=== PATIENT | male | born 1985 | race Hispanic/Latino ===

== ENCOUNTER 2021-01-01 01:32 | Emergency (ER) | payer OTHER ==
[2021-01-01] MEDS ORDERED: HALOPERIDOL LACTATE 5 MG/1 ML INJ IM PRN (01:49)
[2021-01-01] MEDS ORDERED: LORazepam 2 MG/ML VIAL IM PRN (01:49)
--- NOTE | 2021-01-01 01:57 | Emergency Department Report ---
ED General Adult HPI - General Chief complaint: Psych Stated complaint: Psych PUI?: No Time Seen by Provider: 01/01/21 01:47 Source: patient, police, RN notes reviewed Limitations: Other (Acute psychosis) - History of Present Illness Initial comments: The patient was evaluated in the emergency department for symptoms described in the history of present illness. He/she was evaluated in the context of the global COVID-19 pandemic, which necessitated consideration that the patient might be at risk for infection with the virus that causes COVID-19. In stitutional protocols and algorithms that pertain to the evaluation of patients at risk for COVID-19 are in a state of rapid change based on information released by regulatory bodies including the CDC and federal and state organizations. These policies and algorithms were followed during the patient's care in the emergency department. Please note that these policies, procedures and recommendations changed on a rapid basis. This patient is a an obese male, appears to be in his mid 30s, who was brought to the hospital by police department, with police guard stating that they are bringing him here for "1013." Patient is acutely psychotic/disorganized and not forthcoming, therefore, history obtained from police department. Apparently, law enforcement contacted because this patient was reportedly "prowling" around local houses. Apparently, one of the local homeowners called police department. Police Department do not have ID on this patient, and the patient is not forthco traci with his name. At 1 point in time, as Police Department, the patient stated that he was Itzel Lopez, later on, give his name is Clifton, and perhaps Linus. He did not endorse physical pain. Patient responds with a series of uninterrupted ones and zeros. The patient then stated "I am not giving you my age." The patient is obvious psychotic and disorganized, and therefore, duration of symptoms, quality of symptoms, exacerbating relieving factors are not available. ED Review of Systems ROS: Stated complaint: MH Other details as noted in HPI Comment: Unobtainable due to pts medical conditions ED Physical Exam - General Limitations: Other (Acute psychosis and disorganization) General appearance: anxious, obese - Head Head exam: Present: atraumatic, normocephalic - Eye Eye exam: Present: normal appearance, PERRL, EOMI, other (Pupils are dilated). Absent: nystagmus - ENT ENT exam: Present: normal exam, normal orophraynx, mucous membranes moist, normal external ear exam - Neck Neck exam: Present: normal inspection, full ROM. Absent: tenderness, meningismus - Respiratory Respiratory exam: Present: normal lung sounds bilaterally. Absent: respiratory distress, wheezes, rales, rhonchi, stridor - Cardiovascular Cardiovascular Exam: Present: regular rate, normal rhythm, normal heart sounds. Absent: bradycardia, tachycardia, irregular rhythm, systolic murmur, diastolic murmur, rubs, gallop - GI/Abdominal GI/Abdominal exam: Present: soft. Absent: distended, tenderness, guarding, rebound, rigid, pulsatile mass - Rectal Rectal exam: Present: deferred - Extremities Exam Extremities exam: Present: normal inspection, full ROM, other (2+ pulses noted in the bilateral upper and lower extremities. There is no palpable cord. negative Homans sign. Muscular compartments are soft. The pelvis is stable.). Absent: pedal edema, calf tenderness - Back Exam Back exam: Present: normal inspection. Absent: tenderness, CVA tenderness (R), CVA tenderness (L), paraspinal tenderness, vertebral tenderness - Neurological Exam Neurological exam: Present: altered (Psychosis), normal gait, other (No facial droop. Tongue is midline. EOMI. 5 out of 5 strength in 4 extremities) - Psychiatric Psychiatric exam: Present: anxious - Skin Skin exam: Present: warm, dry, intact, normal color. Absent: rash ED Course Vital Signs 01/01/21 01/01/21 02:06 02:23 Temperature 98.5 F 98.5 F Pulse Rate 72 72 Respiratory 14 14 Rate Blood Pressure 122/57 122/57 [Right] O2 Sat by Pulse 97 97 Oximetry - Reevaluation(s) Reevaluation #1: 01/01/21 01:55 Differential diagnosis, including but not limited to: Psychosis, medical clearance for psychiatric evaluation, medical screening examination Assessment and plan: Obese male who is clinically psychotic, requires medical clearance for psychiatric evaluation. 1013 form filled out by myself. Have requested appropriate laboratory studies, vital signs, noncontrast CT scan of the brain, Covid swab for placement, urinalysis, urine toxicology study. Nursing team to take patient to decontamination room to clean him off, as he appears to have leaves, and other pieces of dirt on him. 01/01/21 02:41 Given dilated pupils, disorganized behavior, leukocytosis, I suspect drug- induced psychosis, likely sympathomimetic. There is no neck stiffness, no meningeal signs, no fever, nonfocal motor exam, and the patient walks with a steady gait. Do not suspect invasive bacterial or viral infection at this time. 01/01/21 02:[address] scan of the brain is negative for acute disease. BC reviewed and appreciated, leukocytosis is likely a stress reaction, likely secondary to sympathomimetic ingestion. Basic metabolic panel unremarkable with exception of mild dehydration. Liver panel unremarkable with the exception of mildly elevated CK, which will decrease on its own with rest and oral hydration, and minimal elevation in liver tests, which can be followed up expectantly as an outpatient. Urinalysis is pending at this time. Serum toxicology study unremarkable. Urine drug screen and Covid swab pending at this time. 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 At this point time, this patient does not appear to have an immediate medical contraindication to psychiatric admission, evaluation, consultation and placement. ED Medical Decision Making - Lab Data Result diagrams: 01/01/21 02:11 01/01/21 02:11 Vital Signs 01/01/21 02:23 Temperature 98.5 F Pulse Rate 72 Respiratory 14 Rate Blood Pressure 122/57 [Right] O2 Sat by Pulse 97 Oximetry Lab Results 01/01/21 Range/Units 02:11 WBC 18.2 H (4.5-11.0) K/mm3 RBC 5.25 H (3.65-5.03) M/mm3 Hgb 15.1 (11.8-15.2) gm/dl Hct 45.0 (35.5-45.6) % MCV 86 (84-94) fl MCH 29 (28-32) pg MCHC 34 (32-34) % RDW 14.1 (13.2-15.2) % Plt Count 300 (140-440) K/mm3 Lab Results 01/01/21 01/01/21 01/01/21 Range/Units 02:11 02:11 02:11 WBC 18.2 H (4.5-11.0) K/mm3 RBC 5.25 H (3.65-5.03) M/mm3 Hgb 15.1 (11.8-15.2) gm/dl Hct 45.0 (35.5-45.6) % MCV 86 (84-94) fl MCH 29 (28-32) pg MCHC 34 (32-34) % RDW 14.1 (13.2-15.2) % Plt Count 300 (140-440) K/mm3 Sodium 142 (137-145) mmol/L Potassium 3.9 (3.6-5.0) mmol/L Chloride 102.9 (98-107) mmol/L Carbon Dioxide 21 L (22-30) mmol/L Anion Gap 22 mmol/L BUN 10 (9-20) mg/dL Creatinine 1.2 (0.8-1.3) mg/dL Estimated GFR > 60 ml/min BUN/Creatinine Ratio 8 % Glucose 123 H (75-100) mg/dL Calcium 9.3 (8.4-10.2) mg/dL Magnesium (1.7-2.3) mg/dL Total Bilirubin 0.90 (0.1-1.2) mg/dL AST 46 H (5-40) units/L ALT 65 H (7-56) units/L Alkaline Phosphatase 81 (35-129) units/L Total Creatine Kinase (55-170) units/L Total Protein 7.4 (6.3-8.2) g/dL Albumin 4.6 (3.9-5) g/dL Albumin/Globulin Ratio 1.6 % Salicylates < 0.3 L (2.8-20.0) mg/dL Acetaminophen (10.0-30.0) ug/mL Plasma/Serum Alcohol (0-0.07) % 01/01/21 01/01/21 01/01/21 Range/Units 02:11 02:11 02:11 WBC (4.5-11.0) K/mm3 RBC (3.65-5.03) M/mm3 Hgb (11.8-15.2) gm/dl Hct (35.5-45.6) % MCV (84-94) fl MCH (28-32) pg MCHC (32-34) % RDW (13.2-15.2) % Plt Count (140-440) K/mm3 Sodium (137-145) mmol/L Potassium (3.6-5.0) mmol/L Chloride (98-107) mmol/L Carbon Dioxide (22-30) mmol/L Anion Gap mmol/L BUN (9-20) mg/dL Creatinine (0.8-1.3) mg/dL Estimated GFR ml/min BUN/Creatinine Ratio % Glucose (75-100) mg/dL Calcium (8.4-10.2) mg/dL Magnesium 2.00 (1.7-2.3) mg/dL Total Bilirubin (0.1-1.2) mg/dL AST (5-40) units/L ALT (7-56) units/L Alkaline Phosphatase (35-129) units/L Total Creatine Kinase 856 H (55-170) units/L Total Protein (6.3-8.2) g/dL Albumin (3.9-5) g/dL Albumin/Globulin Ratio % Salicylates (2.8-20.0) mg/dL Acetaminophen 5.0 L (10.0-30.0) ug/mL Plasma/Serum Alcohol < 0.01 (0-0.07) % - Radiology Data Radiology results: report reviewed, image reviewed [place] [id number] Cat Scan Report Signed Patient: EMERGENCY,MEDICAL MR#: [id number] : 05/18/1983 Acct:[id number] Age/Sex: 37 / M ADM Date: 01/01/21 Loc: ED Attending Dr: Ordering Physician: NATALIE BYRD MD Date of Service: 01/01/21 Procedure(s): CT head/brain wo con Accession Number(s): [id number] cc: NATALIE BYRD MD NONENHANCED CT SCAN OF THE HEAD: INDICATION / CLINICAL INFORMATION: 37 years Male; Psychosis. TECHNIQUE: Routine CT head without contrast. All CT scans at this location are performed using CT dose reduction for ALARA by means of automated exposure control. COMPARISON: Not available; CT images from 11/09/2020 linked to this patient belongs to a different patient FINDINGS: BRAIN / INTRACRANIAL CONTENTS: Motion related artifacts obscuring the details in some of these images. No acute hemorrhage, mass effect, midline shift, hydrocephalus, or acute, large territorial infarct. No chronic infarct or focal atrophy. Normal brain volume and ventricular/sulcal size for age. No significant white matter abnormality. CRANIOCERVICAL JUNCTION: No significant abnormality. ORBITS: No significant abnormality of visualized orbits. SINUSES / MASTOIDS: No significant abnormality of the visualized paranasal sinuses or mastoid air cells. ADDITIONAL FINDINGS: None. IMPRESSION: No focal parenchymal lesion Signer Name: Rosetta Peacock MD Signed: 01/01/2021 2:34 AM Workstation Name: [id number] Transcribed By: BS Dictated By: Rosetta Gutierrez MD Electronically Authenticated By: Rosetta Gutierrez MD Signed Date/Time: 01/01/21 0234 Critical care attestation.: If time is entered above; I have spent that time in minutes in the direct care of this critically ill patient, excluding procedure time. ED Disposition Clinical Impression: Psychosis, Medical clearance for psychiatric admission Disposition: [address] [place] [address] Is pt being admited?: No Does the pt Need Aspirin: No Condition: Good
[2021-01-01 02:27] LABS: Hemoglobin 15.1 gm/dl (11.8-15.2); Mean Corpuscular HGB Conc 34 % (32-34); Mean Corpuscular Volume 86 fl (84-94); Platelet Count 300 K/mm3 (140-440); Red Blood Count 5.25 M/mm3 (3.65-5.03); Red Cell Distribution Width 14.1 % (13.2-15.2)
--- NOTE | 2021-01-01 02:38 | Cat Scan Report ---
NONENHANCED CT SCAN OF THE HEAD: INDICATION / CLINICAL INFORMATION: 37 years Male; Psychosis. TECHNIQUE: Routine CT head without contrast. All CT scans at this location are performed using CT dos e reduction for ALARA by means of automated exposure control. COMPARISON: Not available; CT images from 11/09/2020 linked to this patient belongs to a different patient FINDINGS: BRAIN / INTRACRANIAL CONTENTS: Motion related artifacts obscuring the details in some of these images . No acute hemorrhage, mass effect, midline shift, hydrocephalus, or acute, large territorial infarct . No chronic infarct or focal atrophy. Normal brain volume and ventricular/sulcal size for age. No si gnificant white matter abnormality. CRANIOCERVICAL JUNCTION: No significant abnormality. ORBITS: No significant abnormality of visualized orbits. SINUSES / MASTOIDS: No significant abnormality of the visualized paranasal sinuses or mastoid air santiago ls. ADDITIONAL FINDINGS: None. IMPRESSION: No focal parenchymal lesion Signer Name: Rosetta Peacock MD Signed: 01/01/2021 2:34 AM Workstation Name: [id number]
[2021-01-01 02:46] LABS: Alanine Aminotransferase 65 units/L (7-56); Albumin 4.6 g/dL (3.9-5); BUN/Creatinine Ratio 8; Blood Urea Nitrogen 10 mg/dL (9-20); Calcium 9.3 mg/dL (8.4-10.2); Hemolysis Index 19
--- NOTE | 2021-01-01 10:21 | Event Note ---
Patient is currently in seclusion. I have ordered behavioral restraint seclusion. I encouraged chemical restraint as ordered by my colleague. As needed Haldol and lorazepam both ordered. Patient is currently responding to internal stimuli. He is speaking with persons not present.
--- NOTE | 2021-01-01 10:35 | Consultation ---
History of Present Illness - Reason for Consult Consult date: 01/01/21 Reason for consult: psychosis - History of Present Psychiatric Illness Per ER Note: This patient is a an obese male, appears to be in his mid 30s, who was brought to the hospital by police department, with ammunition officer stating that they are bringing him here for "1013." Patient is acutely psychotic/disorganized and not forthcoming, therefore, history obtained from police department. Apparently, law enforcement contacted because this patient was reportedly "prowling" around local houses. Apparently, one of the local homeowners called police department. Police Department do not have ID on this patient, and the patient is not forthcoming with his name. At 1 point in time, as Police Department, the patient stated that he was Itzel Lopez, later on, give his name is Clifton, and perhaps Linus. He did not endorse physical pain. Patient responds with a series of uninterrupted ones and zeros. The patient then stated "I am not giving you my age." The patient is obvious psychotic and disorganized, and therefore, duration of symptoms, quality of symptoms, exacerba ting relieving factors are not available. I attempted to evaluate the patient today. He is in the isolation room. He is bizarre and appears acutely psychotic. He is walking around with his arms fixed liked he is riding a bike or something. He then looks at me and leans against the wall with stares upward. His arms are still fixed. Psych History Unable to assess REVIEW OF SYSTEMS Unable to assess MENTAL STATUS EXAMINATION Unable to assess Assessment and Plan Acute psychosis Treatment [address] 250mg po BID Risperidone 25mg po BID Sitter: Per primary Medical: Per primary Disposition: Recommend acute psychiatric inpatient treatment. Will follow. Thanks Case staffed with Dr. Cutler Medications and Allergies Allergies Allergy/AdvReac Type Severity Reaction Status Date / Time Unable to Assess Allergy Unverified 01/01/21 10:30 Active Meds: Active Medications Haloperidol Lactate (Haloperidol Lactate 5 Mg/1 Ml Inj) 5 mg IM Q6HR PRN PRN Reason: Agitation Lorazepam (Lorazepam 2 Mg/Ml Vial) 2 mg IM Q4HR PRN PRN Reason: Agitation Mental Status Exam - Vital signs Last Vital Signs Temp 98.0 F 01/01/21 08:13 Pulse 90 01/01/21 08:13 Resp 20 01/01/21 08:13 BP 128/88 01/01/21 08:13 Pulse Ox 100 01/01/21 08:13 Results Result Diagrams: 01/01/21 02:11 01/01/21 02:11 Abnormal lab results 01/01/21 01/01/21 01/01/21 Range/Units 02:11 02:11 02:11 WBC 18.2 H (4.5-11.0) K/mm3 RBC 5.25 H (3.65-5.03) M/mm3 Carbon Dioxide 21 L (22-30) mmol/L Glucose 123 H (75-100) mg/dL AST 46 H (5-40) units/L ALT 65 H (7-56) units/L Total Creatine Kinase (55-170) units/L Salicylates < 0.3 L (2.8-20.0) mg/dL Acetaminophen (10.0-30.0) ug/mL 01/01/21 01/01/21 Range/Units 02:11 02:11 WBC (4.5-11.0) K/mm3 RBC (3.65-5.03) M/mm3 Carbon Dioxide (22-30) mmol/L Glucose (75-100) mg/dL AST (5-40) units/L ALT (7-56) units/L Total Creatine Kinase 856 H (55-170) units/L Salicylates (2.8-20.0) mg/dL Acetaminophen 5.0 L (10.0-30.0) ug/mL All other labs normal.
[2021-01-01] MEDS ORDERED: LORazepam 2 MG/ML VIAL ONE (10:42)
[2021-01-01] MEDS ORDERED: HALOPERIDOL LACTATE 5 MG/1 ML INJ ONE (10:42)
[2021-01-01] MEDS: risperiDONE 0.25 MG TAB PO SCH (10:46)
[2021-01-01] MEDS: DIVALPROEX DR 125 MG TAB PO SCH (10:46)
[2021-01-02] MEDS: risperiDONE 0.25 MG TAB PO SCH ×2 (00:56→00:59)
[2021-01-02] MEDS: DIVALPROEX DR 125 MG TAB PO SCH ×3 (00:56→10:50)
[2021-01-02 02:31] LABS: Amphetamine Screen,Urine PRESUMPTIVE NEGATIVE; Benzodiazepines Screen,Urine PRESUMPTIVE NEGATIVE; Cannabinoid Screen,Urine PRESUMPTIVE POSITIVE; Cocaine Screen,Urine PRESUMPTIVE NEGATIVE; Methadone Screen,Urine PRESUMPTIVE NEGATIVE; Opiate Screen,Urine PRESUMPTIVE NEGATIVE
[2021-01-02 02:32] LABS: Bilirubin,Urine NEG (Negative); Blood,Urine NEG (Negative); Color,Urine Amber (Yellow); Mucus,Urine 3+ /HPF; Urobilinogen,Urine < 2.0 mg/dL (<2.0)
[2021-01-02 08:06] VITALS: BP 133/97
--- NOTE | 2021-01-02 09:06 | Progress Note ---
Subjective - Reason for Consult Consult date: 01/02/21 Reason for consult: psychosis - Chief Complaint Chief complaint: The patient was seen today. He is much more organized than yesterday. He is calm and cooperative. He says he didn't remember a lot about yesterday. The patient says he feels "like he got hit by a truck." He says he remembers he was "smoking weed and had a drink and don't know if it was laced with something or not." He denies SI/HI. He says "I was never that." He denies hallucinations of any kind, but says "I know I was yesterday." The patient gave me permission to speak with his mother, Mara, at [phone]. Mara says the patient flips in and out of these psychotic episodes. SHe says he had been depressed. She says "he gets way bad." She also states the patient knows what to say in order to get discharged. She says she feels he needs inpatient treatment to ensue his safety. Mara says she is on her way to the hospital and would like to speak with the patient to see "if he's normal." REVIEW OF SYSTEMS Constitutional: Negative for weight loss ENT: Negative for stridor Respiratory: Negative for cough or hemoptysis All other systems reviewed and are negative MENTAL STATUS EXAMINATION General Appearance and Behavior: Age appropriate, good hygiene, wearing appropriate clothes, calm and cooperative polite with questioning. Cooperation: engaged Psychomotor Behavior: Psychomotor normal Mood: depressed Affect and affective range: congruent with stated mood Thought Process: goal directed Thought Content: SI/HI Speech: Normal volume, Regular rate and rhythm, Suicidal Ideation: yes with plan to jump off bridge Homicidal Ideation: Yes Hallucinations: Denies Delusions: None elicited Impulse Control: Unimpaired Insight and Judgment: Limited Memory: Limited Attention: attentive Orientation: a/o Assessment and Plan Acute psychosis Treatment [address] 250mg po BID Increase Risperidone 0.5mg po BID Sitter: Per primary Medical: Per primary Disposition: Recommend acute psychiatric inpatient treatment. Will follow. Thanks Case staffed with Dr. Cutler Mental Status Exam - Vital signs Last Vital Signs Temp 97.6 F 01/02/21 08:06 Pulse 68 08/18/21 08:06 Resp 20 01/02/21 08:06 BP 133/97 01/02/21 08:06 Pulse Ox 98 01/02/21 08:06
[2021-01-02] MEDS ORDERED: risperiDONE 0.25 MG TAB PO SCH (10:00)
--- NOTE | 2021-01-02 10:17 | Event Note ---
Date: 01/02/21 This patient presented yesterday for a mental health evaluation after he was brought in by PD. He was evaluated by my colleague and placed on a 1013 and on an ED hold secondary to acute psychosis. He was also medically cleared at that time. The patient has been seen by the psychiatric team both yesterday and today and their plan is to continue with the 1013 and inpatient stabilization. The labs have been mostly unremarkable except for a mild leukocytosis of 18,000. A CBC redraw will be done. However the patient is afebrile. Urinalysis does not show any urinary tract infection. The patient is negative for COVID-19. The leukocytosis is most likely secondary to his acute psychosis and what ever events led him to coming into the emergency department via PD. Vital signs reassuring throughout his ED course thus far including being afebrile. We will continue to monitor the patient during his ED course. Vital Signs - 24 hr 01/01/21 01/01/21 01/02/21 10:51 19:50 01:48 Temperature 98.2 F 98.3 F Pulse Rate 102 H 107 H Respiratory 18 18 Rate Blood Pressure 109/76 127/86 [Right] O2 Sat by Pulse 98 99 93 Oximetry 01/02/21 01/02/21 08:05 08:06 Temperature 97.6 F Pulse Rate 68 Respiratory 20 Rate Blood Pressure 133/97 [Right] O2 Sat by Pulse 98 98 Oximetry
[2021-01-02 13:29] LABS: Hematocrit 43.4 % (35.5-45.6); Hemoglobin 14.5 gm/dl (11.8-15.2); Mean Corpuscular HGB Conc 33 % (32-34); Mean Corpuscular Volume 85 fl (84-94); Platelet Count 218 K/mm3 (140-440); Red Blood Count 5.13 M/mm3 (3.65-5.03); Red Cell Distribution Width 13.7 % (13.2-15.2)
== END 2021-01-02 18:25 ==
LOC: EEVIPCON 01:32 → ED 01:32
DX: F29 Unspecified psychosis not due to a substance or known physiological condition (principal); Z20.822 Contact with and (suspected) exposure to COVID-19; Z00.8 Encounter for other general examination; Z88.2 Allergy status to sulfonamides
CPT/HCPCS: 36415; 70450; 80053; 80307; 81001; 82550; 83735; 84443; 85027; 96372; 99285; J1630; J2060; U0003; 80320; G0480